=== PATIENT | female | born 1965 | race Caucasian/White ===

== ENCOUNTER 2017-04-06 15:33 | Outpatient (CLI) | payer OTHER ==
--- NOTE | 2017-04-06 15:57 | RAD ---
PA AND LATERAL CHEST: History: Cough. FINDINGS: Heart size is normal. The lungs are well expanded without focal lesions, consolidation, pneumothorace s or pleural effusions. There are mild degenerative changes in the spine. IMPRESSION: No radiographic evidence of acute cardiopulmonary process. POS: OFF
== END 2017-04-06 15:34 | disposition home or self-care (01) ==
LOC: SCSRAD 15:33
PROVIDERS: ATTEND Family Medicine
DX: R05 Cough (principal)
CPT/HCPCS: 71046

== ENCOUNTER 2018-01-29 11:09 | Outpatient (CLI) | payer OTHER ==
--- NOTE | 2018-01-29 12:55 | RAD ---
PA AND LATERAL VIEWS CHEST: HISTORY: Cough. FINDINGS: Comparison is made with the exam of 04/06/2017. The cardiomediastinum is normal. The lungs are expanded without focal areas of consolidation, pneumo thorax, or pleural effusions. There are mild degenerative changes in the spine. IMPRESSION: No radiographic evidence of acute cardiopulmonary process. POS: OFF
== END 2018-01-29 11:10 | disposition home or self-care (01) ==
LOC: SCSRAD 11:09
PROVIDERS: ATTEND Family Medicine
DX: J20.9 Acute bronchitis, unspecified (principal)
CPT/HCPCS: 71046

== ENCOUNTER 2020-01-30 21:11 | Inpatient (IN) | payer OTHER ==
[~2020-01-30 21:11] MED LIST: Iopamidol-370 76% 500 ML 1 ML ONE
[2020-01-30] MEDS ORDERED: Aspirin Chewable 81 MG TAB ONE (22:22)
[2020-01-30] MEDS ORDERED: methylPREDNISolone Sod Succ/PF 125 MG/2 ML VIAL ONE (22:22)
[2020-01-30] MEDS ORDERED: Albuterol 200 PUFF (6.7GM INHALER) ONE (22:45)
[2020-01-30 22:49] LABS: #Lymphocytes 0.9 thou/uL (1.20-3.40); #Monocytes 0.5 thou/uL (0.11-0.59); #Neutrophils 10.8 thou/uL (1.40-6.50); %Basophils 0.1 % (0.0-1.0); %Eosinophils 0.1 % (0.0-10.0); %Lymphocytes 7.2 % (21.0-51.0); %Neutrophils 88.6 % (42.0-75.0); Hemoglobin 13.2 g/dL (12.0-16.0); Mean Corpuscular HGB CONC 33.5 g/dL (32.0-36.0); Mean Corpuscular Hemoglobin 33.1 pg (27.0-31.0); Mean Corpuscular Volume 98.7 fL (78.0-98.0); Mean Platelet Volume 7.4 fL (7.4-10.4); Platelet Count 270 thou/uL (130-400); RBC Distribution Width 11.7 % (11.5-14.5); Red Blood Cell (RBC) Count 3.99 mill/uL (4.20-5.40); White Blood Cell (WBC) Count 12.1 thou/uL (4.8-10.8)
[2020-01-30 23:11] LABS: ALT (SGPT) 49 U/L (8-55); AST (SGOT) 41 U/L (5-34); Albumin 3.8 g/dL (3.5-5.0); Alkaline Phosphatase 64 U/L (40-110); Anion Gap 14 mmol/L (10-20); BUN (Urea Nitrogen) 13 mg/dL (9.8-20.1); Bilirubin, Total 0.5 mg/dL (0.2-1.2); Calc. Creatinine Clearance 0 mL/min (70-130); Calcium 8.5 mg/dL (7.8-10.44); Carbon Dioxide 24 mmol/L (22-29); Chloride 108 mmol/L (98-107); Globulin 3.2 g/dL (2.4-3.5); Glucose 146 mg/dL (70-105); Potassium 4.2 mmol/L (3.5-5.1); Sodium 142 mmol/L (136-145)
--- NOTE | 2020-01-30 23:17 | RAD ---
EXAM: Single view of the chest HISTORY: Covid positive with dyspnea and fever COMPARISON: 01/29/2018 FINDINGS: Single view of the chest shows a normal sized cardiomediastinal silhouette. There is subtle peripheral areas of airspace attenuation in the lungs. These are more discernible in the left lung. No acute osseous abnormality. IMPRESSION: Subtle multifocal infiltrates
[2020-01-30] MEDS ORDERED: Enoxaparin Sodium 100 MG/ML SYRINGE ONE (23:32)
[2020-01-30] MEDS ORDERED: Azithromycin 500 MG VIAL ONE (23:39)
--- NOTE | 2020-01-31 01:27 | PDOC.HHP ---
Hospitalist HPI - History of Present Illness Shortness of breath, Covid positive History of Present Illness: This is a 54-year-old female patient With a history of asthma who tested positive for Covid on 01/22/2020 after having symptoms beginning 3 days prior. She notes that her was positive but was generally asymptomatic. She was in contact with her PCP who ordered for her some steroids and she is also been taking some vitamins. Symptoms have progressively worsened with increasing cough, fever, shortness of breath and generalized malaise prompting her to come to the ED for further evaluation. She denies any dysuria frequency abdominal pain but notes having diarrhea. At presentation vitals shows blood pressure of 114/46, pulse 76, temperature 98.3 and saturation 96 on room air. Subsequently she needed 2 L of oxygen for saturation. Labs showed a leukocytosis of 12.1, hemoglobin 13.2 and platelets 270. CMP was essentially within normal limits. D-dimer was elevated at 0.53. Chest x-ray showed multiple subtle multifocal infiltrates and a CTA all concerning for Covid. She was given a azithromycin Lovenox aspirin Proventil and Solu-Medrol in the ED. Hospitalist ROS - Review of Systems Constitutional: reports: fever, chills, weakness Respiratory: reports: cough, shortness of breath, SOB with excertion. denies: hemoptysis Cardiovascular: denies: chest pain, palpitations, orthopnea, paroxysmal noc. dyspnea Gastrointestinal: reports: diarrhea. denies: nausea, vomiting, abdominal pain, constipation Genitourinary: denies: dysuria, frequency, incontinence, hematuria Musculoskeletal: denies: neck pain, shoulder pain Neurological: denies: weakness, numbness, change in speech All other systems reviewed; all pertinent +/- noted in HPI/Subj - Medication Medications: Can refer to ambulatory Ct. Allergies: No known drug allergies Hospitalist History - Past Medical History Pulmonary: reports: asthma - Past Surgical History Past Surgical History: reports: Hysterectomy - Family History Family History: reports: no pertinent history - Social History Smoking Status: Never smoker Alcohol: reports: None Living Situation: With Family Activity level: independent ambulation - Exam General Appearance: awake alert General - other findings: Mild distress otherwise looks cheerful. Eye: PERRL, anicteric sclera ENT: normocephalic atraumatic Neck: supple, symmetric, no JVD Heart: RRR, no gallops, no rubs, murmur present Respiratory - other findings: Reduced air entry bilaterally. Occasional wheezing Gastrointestinal: soft, non-tender, non-distended, normal bowel sounds Extremities: no cyanosis, no clubbing, no edema Neurological: cranial nerve grossly intact, no weakness Psychiatric: normal affect, normal behavior, A&O x 3 Hospitalist Results - Labs Result Diagrams: 01/31/20 02:18 01/31/20 02:18 Lab results: WBC 12.1 thou/uL (4.8-10.8) H 01/30/20 22:32 Hgb 13.2 g/dL (12.0-16.0) 01/30/20 22:32 Hct 39.4 % (36.0-47.0) 01/30/20 22:32 MCV 98.7 fL (78.0-98.0) H 01/30/20 22:32 Plt Count 270 thou/uL (130-400) 01/30/20 22:32 Neutrophils % 88.6 % (42.0-75.0) H 01/30/20 22:32 Sodium 142 mmol/L (136-145) 01/30/20 22:32 Potassium 4.2 mmol/L (3.5-5.1) 01/30/20 22:32 Chloride 108 mmol/L (98-107) H 01/30/20 22:32 Carbon Dioxide 24 mmol/L (22-29) 01/30/20 22:32 BUN 13 mg/dL (9.8-20.1) 01/30/20 22:32 Creatinine 0.81 mg/dL (0.6-1.1) 01/30/20 22:32 Glucose 146 mg/dL (70-105) H 01/30/20 22:32 Lactic Acid 1.7 mmol/L (0.5-2.2) 01/30/20 22:32 Calcium 8.5 mg/dL (7.8-10.44) 01/30/20 22:32 Total Bilirubin 0.5 mg/dL (0.2-1.2) 01/30/20 22:32 AST 41 U/L (5-34) H 01/30/20 22:32 ALT 49 U/L (8-55) 01/30/20 22:32 Alkaline Phosphatase 64 U/L (40-110) 01/30/20 22:32 Troponin I Less than 0.010 ng/mL (< 0.028) 01/30/20 22:32 Serum Total Protein 7.0 g/dL (6.0-8.3) 01/30/20 22:32 Albumin 3.8 g/dL (3.5-5.0) 01/30/20 22:32 Hospitalist H&P A/P - Plan Plan: Is a 54-year-old female patient history of asthma diagnosed with Covid pneumonia 9 days ago here today for worsening cough shortness of breath. Pneumonia due to Covid We will continue on zinc vitamin C Decadron Convalescent plasma She is out of remdesivir window As needed oxygen Twice daily anticoagulant Monitor. History of asthma Plan is scheduled DuoNeb's. Steroids as above DVT prophylaxisLovenox CODE STATUSfull code
[2020-01-31 01:56] VITALS: BMI 32.8
[2020-01-31 02:40] LABS: #Lymphocytes 0.9 thou/uL (1.20-3.40); #Monocytes 0.3 thou/uL (0.11-0.59); %Basophils 0.1 % (0.0-1.0); %Eosinophils 0.2 % (0.0-10.0); %Lymphocytes 7.4 % (21.0-51.0); %Monocytes 2.1 % (0.0-10.0); %Neutrophils 90.2 % (42.0-75.0); Hemoglobin 13.3 g/dL (12.0-16.0); Mean Corpuscular HGB CONC 34.1 g/dL (32.0-36.0); Mean Corpuscular Hemoglobin 34.6 pg (27.0-31.0); Mean Platelet Volume 7.5 fL (7.4-10.4); Platelet Count 248 thou/uL (130-400); RBC Distribution Width 11.8 % (11.5-14.5); Red Blood Cell (RBC) Count 3.85 mill/uL (4.20-5.40); White Blood Cell (WBC) Count 12.2 thou/uL (4.8-10.8)
[2020-01-31 03:12] LABS: Anion Gap 18 mmol/L (10-20); BUN (Urea Nitrogen) 13 mg/dL (9.8-20.1); Calc. Creatinine Clearance 116 mL/min (70-130); Calcium 8.2 mg/dL (7.8-10.44); Carbon Dioxide 19 mmol/L (22-29); Chloride 109 mmol/L (98-107); Glucose 156 mg/dL (70-105); Potassium 4.2 mmol/L (3.5-5.1); Sodium 142 mmol/L (136-145)
[2020-01-31] MEDS ORDERED: Albuterol 200 PUFF (6.7GM INHALER) INH PRN (06:00)
[2020-01-31] MEDS ORDERED: Benzonatate 100 MG CAP PO PRN (06:02)
[2020-01-31] MEDS: Albuterol 200 PUFF (6.7GM INHALER) INH SCH ×5 (06:13→22:03)
--- NOTE | 2020-01-31 08:02 | CT ---
CT OF THE CHEST: COMPARISON: None. HISTORY: COVID positive with fever and decreased oxygen saturation. TECHNIQUE: Multiple contiguous axial images were obtained in a CTA of the chest with contrast per pulmonary embo lism protocol. Three-D oblique MIP reformats and direct coronal reformats were performed. FINDINGS: The pulmonary arteries are well opacified without filling defects to suggest pulmonary emboli. The h eart is normal in size without focal cardiac abnormality. No hilar or mediastinal lymphadenopathy ar e seen. There are multifocal peripheral opacities in the lungs consistent with COVID pneumonia. No pneumotho rax or pleural effusion are seen. No suspicious pulmonary masses are seen. Mild degenerative changes are seen in the spine. The chest wall soft tissues were unremarkable. The visualized subdiaphragmatic structures are unremarkable. IMPRESSION: 1. No evidence of pulmonary thromboembolism. 2. COVID pneumonia. POS: EAA
[2020-01-31] MEDS ORDERED: Non-Formulary Item 1 EACH (Fluticasone/Vilanterol [Breo Ellipta] 100 MCG/25 MCG Blst.W.De IH SCH (09:00)
[2020-01-31] MEDS ORDERED: Fluticasone Propionate Nasal Spray 16 gm Bottle NASAL SCH (09:00)
[2020-01-31] MEDS ORDERED: Dexamethasone 20 MG/5 ML VIAL SLOW IVP SCH (09:00)
[2020-01-31] MEDS ORDERED: Non-Formulary Item 1 EACH (Benzonatate [Benzonatate] 200 MG Capsule) PO SCH (09:00)
[2020-01-31] MEDS ORDERED: Non-Formulary Item 1 EACH (Levothyroxine Sodium [Levothyroxine] 112 MCG Capsule) PO SCH (09:00)
[2020-01-31] MEDS ORDERED: ESTRADIOL 10 MCG VG SCH (09:00)
[2020-01-31] MEDS: Cholecalciferol (Vitamin D3) 400 UNITS TAB PO SCH (10:25)
[2020-01-31] MEDS: Dexamethasone 4 mg/ml Vial SLOW IVP SCH (10:25)
[2020-01-31] MEDS: Enoxaparin Sodium 40 MG/0.4 ML SYRINGE SC SCH ×2 (10:25→20:32)
[2020-01-31] MEDS: Benzonatate 100 MG CAP PO SCH ×2 (10:25→20:29)
[2020-01-31] MEDS: Fluticasone Propionate Nasal Spray 16 gm Bottle NASAL SCH ×2 (10:26→20:30)
[2020-01-31] MEDS: Ascorbic Acid 500 mg Chewable Tablet PO SCH (12:11)
[2020-01-31] MEDS ORDERED: Mometasone 100 MCG/Formoterol 5 MCG 120 PUFF INHALER INH SCH (18:30)
--- NOTE | 2020-01-31 18:38 | PDOC.HOSPP ---
- Subjective Encounter Date: 01/31/20 Encounter Time: 10:30 Subjective: Patient seen for follow-up regarding COVID-19 pneumonia. She reports feeling better today. - Objective Vital Signs & Weight: Vital Signs (12 hours) Temp Pulse Pulse Resp BP BP Pulse Ox 01/31/20 15:40 98.5 F 80 17 101/56 L 94 L 01/31/20 13:00 98.0 F 70 20 103/64 95 01/31/20 07:40 98.4 F 65 22 H 110/64 96 Weight Admit Weight 197 lb 9.6 oz Weight 197 lb 9.6 oz I&O: 01/30/20 01/31/20 02/01/20 06:59 06:59 06:59 Intake Total 750 240 Balance 750 240 Result Diagrams: 01/31/20 02:18 01/31/20 02:18 Additional Labs: I reviewed patient's labs and MAR Hospitalist ROS - Review of Systems Respiratory: reports: cough, SOB with excertion, sputum. denies: dry, shortness of breath, hemoptysis, pleuritic pain, wheezing Cardiovascular: denies: chest pain, palpitations, orthopnea, paroxysmal noc. dyspnea, edema, light headedness - Medication Medications: Active Medications Generic Name Dose Route Start Last Admin Trade Name Freq PRN Reason Stop Dose Admin Albuterol Sulfate 2 puff 01/31/20 06:30 01/31/20 18:24 Albuterol 200 Puff (6.7gm Inhaler) INH 2 puff [id number] AWA Administration Ascorbic Acid 1,000 mg 01/31/20 09:00 01/31/20 12:11 Ascorbic Acid 500 Mg Chewable Tablet PO 1,000 mg DAILY AWA Administration Benzonatate 100 mg 01/31/20 06:02 01/31/20 06:27 Benzonatate 100 Mg Cap PO 100 mg Q6H PRN Administration Cough Benzonatate 200 mg 01/31/20 09:00 01/31/20 10:25 Benzonatate 100 Mg Cap PO 200 mg BID AWA Administration Cholecalciferol 400 units 01/31/20 09:00 01/31/20 10:25 Cholecalciferol (Vitamin D3) 400 Units Tab PO 400 units DAILY AWA Administration Dexamethasone 8 mg 01/31/20 09:00 01/31/20 10:25 Dexamethasone 4 Mg/Ml Vial SLOW IVP 8 mg DAILY AWA Administration Enoxaparin Sodium 40 mg 01/31/20 09:00 01/31/20 10:25 Enoxaparin Sodium 40 Mg/0.4 Ml Syringe SC 40 mg Q12HR AWA Administration Fluticasone Propionate 0 gm 01/31/20 09:00 01/31/20 10:26 Fluticasone Propionate Nasal [place] 16 Gm Bottle NASAL 2 spr BID AWA Administration Sodium Chloride 10 ml 01/31/20 09:00 01/31/20 12:12 Flush - Normal Saline 10 Ml Syringe IVF 10 ml Q12HR AWA Administration - Exam General Appearance: awake alert Eye: anicteric sclera ENT: normocephalic atraumatic Neck: supple Heart: RRR Respiratory: CTAB Gastrointestinal: soft, non-tender Extremities: no edema Skin: no rashes Musculoskeletal: no muscle wasting Psychiatric: normal affect, normal behavior Hosp A/P - Plan Assessment/plan: Pneumonia due to Covid Continue dexamethasone, zinc and vitamin C. Patient received convalescent plasma. She is out of remdesivir window Lovenox 40 mg subcutaneously 2 times a day for DVT prophylaxis. Oxygen as needed. asthma Appears to be stable.
[2020-01-31] MEDS: Acetaminophen 325 MG TAB PO PRN (20:29)
[2020-01-31] MEDS: Mometasone 100 MCG/Formoterol 5 MCG 120 PUFF INHALER INH SCH (20:30)
[2020-02-01] MEDS: Albuterol 200 PUFF (6.7GM INHALER) INH SCH ×6 (02:17→22:55)
[2020-02-01] MEDS: Mometasone 100 MCG/Formoterol 5 MCG 120 PUFF INHALER INH SCH ×2 (05:27→17:53)
[2020-02-01] MEDS: Levothyroxine Sodium 112 MCG TAB PO SCH (05:27)
[2020-02-01] MEDS: Acetaminophen 325 MG TAB PO PRN (05:36)
[2020-02-01] MEDS: Ascorbic Acid 500 mg Chewable Tablet PO SCH (08:37)
[2020-02-01] MEDS: Dexamethasone 4 mg/ml Vial SLOW IVP SCH (08:37)
[2020-02-01] MEDS: Enoxaparin Sodium 40 MG/0.4 ML SYRINGE SC SCH ×3 (08:38→20:41)
[2020-02-01] MEDS: Benzonatate 100 MG CAP PO SCH ×2 (08:38→20:23)
[2020-02-01] MEDS: Fluticasone Propionate Nasal Spray 16 gm Bottle NASAL SCH ×2 (08:38→20:23)
[2020-02-01] MEDS: Cholecalciferol (Vitamin D3) 400 UNITS TAB PO SCH (09:00)
--- NOTE | 2020-02-01 16:33 | PQF ---
CLINICAL DOCUMENTATION CLARIFICATION FORM: Dear Dr. Rachell Quezada Date / Time: 02/01/20 [id number] Please exercise your independent, professional judgment in responding to the clarification form. Clinical indicators are provided on the bottom of this form for your review. Please check appropriate box(es): [ ] Sepsis due to: [ ] Septic Shock [ ] Localized infection without sepsis [ ] SIRS due to non-infectious process (please specify etiology) [ ] with organ dysfunction [ ] without organ dysfunction [ ] Other diagnosis [ ] Unable to determine In addition, please specify: Present on Admission (POA): [ ] Yes [ ] No [ ] Unable to determine For continuity of documentation, please document condition throughout progress notes and discharge summary. Thank You. To be completed by CDI/Coding staff for physician review: CLINICAL INDICATORS - SIGNS / SYMPTOMS / LABS / RESULTS AND LOCATION IN MR 01/29 WBC 12.1 01/30 WBC 12.2 Presents for SOB, associated with cough, dry,fever// 102.0 oral, Resp rate 22, ( ED report) 01/29 RISK FACTORS / RESULTS AND LOCATION IN MR Covid Pneumonia ( H&P/ [facility]) 01/29 TREATMENTS / RESULTS AND LOCATION IN MR NS [place] ( ED 01/29) Azithromycin IVPB ( ED 01/29) Supplemental oxygen ( 01/30 present) CDS Signature: Amanda Prado RN Phone #: [phone] Date: 02/01/2020 This is a permanent part of the Medical Record [facility]
--- NOTE | 2020-02-01 16:34 | PDOC.HOSPP ---
- Subjective Encounter Date: 02/01/20 Encounter Time: 10:30 Subjective: Patient seen for follow-up regarding COVID-19 pneumonia. Reports cough and sputum. - Objective Vital Signs & Weight: Vital Signs (12 hours) Temp Pulse Resp BP Pulse Ox 02/01/20 16:32 98.6 F 02/01/20 13:59 98.7 F 80 20 110/64 96 02/01/20 09:00 95 02/01/20 08:57 98.1 F 71 20 106/71 95 02/01/20 05:40 100.6 F H Weight Admit Weight 197 lb 9.6 oz Weight 197 lb 9.6 oz I&O: 01/31/20 02/01/20 02/02/20 06:59 06:59 06:59 Intake Total 750 740 Balance 750 740 Result Diagrams: 01/31/20 02:18 01/31/20 02:18 Additional Labs: Labs and MAR reviewed by wy Hospitalist ROS - Review of Systems Respiratory: reports: cough, sputum. denies: dry, shortness of breath, hem optysis, SOB with excertion, pleuritic pain, wheezing Cardiovascular: denies: chest pain, palpitations, orthopnea, paroxysmal noc. dyspnea, edema, light headedness - Medication Medications: Active Medications Generic Name Dose Route Start Last Admin Trade Name Freq PRN Reason Stop Dose Admin Acetaminophen 650 mg 01/31/20 01:14 02/01/20 05:36 Acetaminophen 325 Mg Tab PO 650 mg Q4H PRN Administration Headache/Fever/Mild Pain (1-3) Albuterol Sulfate 2 puff 01/31/20 06:30 02/01/20 14:42 Albuterol 200 Puff (6.7gm Inhaler) INH 2 puff [id number] AWA Administration Ascorbic Acid 1,000 mg 01/31/20 09:00 02/01/20 08:37 Ascorbic Acid 500 Mg Chewable Tablet PO 1,000 mg DAILY AWA Administration Benzonatate 100 mg 01/31/20 06:02 01/31/20 06:27 Benzonatate 100 Mg Cap PO 100 mg Q6H PRN Administration Cough Benzonatate 200 mg 01/31/20 09:00 02/01/20 08:38 Benzonatate 100 Mg Cap PO 200 mg BID AWA Administration Cholecalciferol 400 units 01/31/20 09:00 02/01/20 09:00 Cholecalciferol (Vitamin D3) 400 Units Tab PO 400 units DAILY AWA Administration Dexamethasone 8 mg 01/31/20 09:00 02/01/20 08:37 Dexamethasone 4 Mg/Ml Vial SLOW IVP 8 mg DAILY AWA Administration Enoxaparin Sodium 40 mg 01/31/20 09:00 02/01/20 08:38 Enoxaparin Sodium 40 Mg/0.4 Ml Syringe SC 40 mg Q12HR AWA Administration Fluticasone Propionate 0 gm 01/31/20 09:00 02/01/20 08:38 Fluticasone Propionate Nasal [place] 16 Gm Bottle NASAL 2 spr BID AWA Administration Levothyroxine Sodium 112 mcg 02/01/20 06:00 02/01/20 05:27 Levothyroxine Sodium 112 Mcg Tab PO 112 mcg 0600 AWA Administration Mometasone Furoate/Formoterol Fumar 0 puff 01/31/20 18:30 02/01/20 05:27 Mometasone 100 Mcg/Formoterol 5 Mcg 120 Puff Inhaler INH 2 puff BID-RT AWA Administration Sodium Chloride 10 ml 01/31/20 09:00 02/01/20 08:39 Flush - Normal Saline 10 Ml Syringe IVF 10 ml Q12HR AWA Administration - Exam General Appearance: awake alert Eye: anicteric sclera ENT: moist mucosa Neck: supple Heart: RRR Respiratory: rhonchi Gastrointestinal: soft, non-tender Skin: no rashes Psychiatric: normal affect, normal behavior Hosp A/P - Plan Assessment/plan: Pneumonia due to Covid Patient is on dexamethasone, zinc and vitamin C. Patient received convalescent plasma. She is out of remdesivir window Lovenox for DVT prophylaxis. Oxygen as needed. asthma Astable.
--- NOTE | 2020-02-01 16:48 | PQF ---
CLINICAL DOCUMENTATION CLARIFICATION FORM: Dear Dr. Rachell IQBAL Date: 02/01/20 4759 Please exercise your independent, professional judgment in responding to the clarification form. Clinical indicators are provided on the bottom of this form for your review. Please check appropriate box(es): [ ] Acute Respiratory Failure: [ ] with Hypoxia [ ] with Hypercapnia [ ] Acute On Chronic Respiratory Failure: [ ] with Hypoxia [ ] with Hypercapnia [ ] Acute Respiratory Failure due to: (etiology) [ ] Chronic Respiratory Failure only [ ] with Hypoxia [ ] with Hypercapnia [ ] Hypoxia [ ] Other diagnosis [ ] Unable to determine In addition, please specify: Present on Admission (POA): [ ] Yes [ ] No [ ] Unable to determine For continuity of documentation, please document condition throughout progress notes and discharge summary. Thank You. To be completed by CDI/Coding staff for physician review: CLINICAL INDICATORS - SIGNS / SYMPTOMS / LABS / RESULTS AND LOCATION IN MR Covid + on Jan 21. Fever, low O2 sats. Pt states O2 90% at home. Pt speaks in short phrases in triage// respirations , Final ED DX: Covid Pneumonia, Hypoxia ( ED report) 01/29 Sob, tested positive for Covid on 01/21, 96% on RA, Subsequently she need 2L of oxygen for saturation. ( H&P/ [facility]) 01/29 Pneumonia due to Covid, oxygen as needed ( ALEX/[facility]) 01/30-01/31 RISK FACTORS / RESULTS AND LOCATION IN MR Covid pneumonia , hx of asthma, ( H&P/[facility]) 01/29 TREATMENTS / RESULTS AND LOCATION IN MR Supplemental oxygen (01/30 present) Acute Respiratory Failure: ABG pH < 7.35 or > 7.45; Decreased oxygen saturation (<90% room air or < 95% on oxygen); PCO2 > 50 mm Hg; PO2 < 60 mm Hg; Labored or rapid respirations ARDS: Dx Criteria [[place] ARDS]: Respiratory symptoms within one week of a known clinical insult (e.g. shock, infection, surgery, trauma) Bilateral opacities in CXR/Chest CT not due to CHF or fluid THANK YOU! CDS Signature: Amanda Prado RN Phone #: [phone] Date:01/31 This is a permanent part of the Medical Record [facility]
[2020-02-02] MEDS: Albuterol 200 PUFF (6.7GM INHALER) INH SCH ×6 (01:54→23:00)
[2020-02-02] MEDS: Levothyroxine Sodium 112 MCG TAB PO SCH (05:03)
[2020-02-02] MEDS: Mometasone 100 MCG/Formoterol 5 MCG 120 PUFF INHALER INH SCH ×2 (05:38→17:33)
[2020-02-02] MEDS: Dexamethasone 4 mg/ml Vial SLOW IVP SCH (08:16)
[2020-02-02] MEDS: Cholecalciferol (Vitamin D3) 400 UNITS TAB PO SCH (08:16)
[2020-02-02] MEDS: Enoxaparin Sodium 40 MG/0.4 ML SYRINGE SC SCH ×2 (08:17→23:22)
[2020-02-02] MEDS: Fluticasone Propionate Nasal Spray 16 gm Bottle NASAL SCH ×2 (08:17→23:23)
[2020-02-02] MEDS: Benzonatate 100 MG CAP PO SCH ×2 (08:17→23:22)
[2020-02-02] MEDS: Ascorbic Acid 500 mg Chewable Tablet PO SCH (08:17)
[2020-02-02] MEDS: Acetaminophen 325 MG TAB PO PRN (08:28)
[2020-02-02 09:52] LABS: White Blood Cell (WBC) Count 14.1 thou/uL (4.8-10.8)
[2020-02-02 10:10] LABS: Anion Gap 15 mmol/L (10-20); BUN (Urea Nitrogen) 14 mg/dL (9.8-20.1); Calc. Creatinine Clearance 115 mL/min (70-130); Carbon Dioxide 23 mmol/L (22-29); Chloride 105 mmol/L (98-107); Glucose 161 mg/dL (70-105); Potassium 3.7 mmol/L (3.5-5.1); Sodium 139 mmol/L (136-145)
[2020-02-02 10:23] LABS: Hemoglobin 12.6 g/dL (12.0-16.0); Mean Corpuscular HGB CONC 33.9 g/dL (32.0-36.0); Mean Corpuscular Hemoglobin 34.1 pg (27.0-31.0); Platelet Count 318 thou/uL (130-400); RBC Distribution Width 11.6 % (11.5-14.5); Red Blood Cell (RBC) Count 3.69 mill/uL (4.20-5.40)
[2020-02-02 10:24] LABS: Band 2 % (5-11); Lymphocytes 6 % (21-51); MDiff Complete? YES; Monocytes 4 % (0-10); Neutrophil 83 % (42-75); Platelet Morphology Comment Appears Adequate; Reactive Lymphocytes 5 % (0-10)
[2020-02-02] MEDS: Estradiol [Vagifem] 10 MCG Tablet VAG SCH ×2 (13:22→13:23)
--- NOTE | 2020-02-02 19:37 | PDOC.HOSPP ---
- Subjective Encounter Date: 02/02/20 Encounter Time: 11:30 Subjective: Patient seen for follow-up COVID-19 pneumonia. She reports fever. She reports generalized weakness. - Objective Vital Signs & Weight: Vital Signs (12 hours) Temp Pulse Resp BP Pulse Ox 02/02/20 16:06 98.1 F 72 18 105/66 96 02/02/20 12:02 97.7 F 62 20 106/63 96 02/02/20 08:57 96 02/02/20 08:55 101 F H 72 16 103/65 96 Weight Admit Weight 197 lb 9.6 oz Weight 197 lb 9.6 oz I&O: 02/01/20 02/02/20 02/03/20 06:59 06:59 06:59 Intake Total 740 1000 1000 Balance 740 1000 1000 Result Diagrams: 02/03/20 05:40 02/03/20 05:40 Additional Labs: I reviewed patient's labs and MAR Hospitalist ROS - Review of Systems Constitutional: reports: weakness Respiratory: reports: cough, SOB with excertion, sputum Cardiovascular: denies: chest pain, palpitations, orthopnea, paroxysmal noc. dyspnea, edema, light headedness Gastrointestinal: denies: nausea, vomiting, abdominal pain, diarrhea, constipation, melena, hematochezia - Medication Medications: Active Medications Generic Name Dose Route Start Last Admin Trade Name Freq PRN Reason Stop Dose Admin Acetaminophen 650 mg 01/31/20 01:14 02/02/20 08:28 Acetaminophen 325 Mg Tab PO 650 mg Q4H PRN Administration Headache/Fever/Mild Pain (1-3) Albuterol Sulfate 2 puff 01/31/20 06:30 02/02/20 17:32 Albuterol 200 Puff (6.7gm Inhaler) INH 2 puff [id number] AWA Administration Ascorbic Acid 1,000 mg 01/31/20 09:00 02/02/20 08:17 Ascorbic Acid 500 Mg Chewable Tablet PO 1,000 mg DAILY AWA Administration Benzonatate 100 mg 01/31/20 06:02 01/31/20 06:27 Benzonatate 100 Mg Cap PO 100 mg Q6H PRN Administration Cough Benzonatate 200 mg 01/31/20 09:00 02/02/20 08:17 Benzonatate 100 Mg Cap PO 200 mg BID AWA Administration Cholecalciferol 400 units 01/31/20 09:00 02/02/20 08:16 Cholecalciferol (Vitamin D3) 400 Units Tab PO 400 units DAILY AWA Administration Dexamethasone 8 mg 01/31/20 09:00 02/02/20 08:16 Dexamethasone 4 Mg/Ml Vial SLOW IVP 8 mg DAILY AWA Administration Enoxaparin Sodium 40 mg 01/31/20 09:00 02/02/20 08:17 Enoxaparin Sodium 40 Mg/0.4 Ml Syringe SC 40 mg Q12HR AWA Administration Fluticasone Propionate 0 gm 01/31/20 09:00 02/02/20 08:17 Fluticasone Propionate Nasal [place] 16 Gm Bottle NASAL 1 spr BID AWA Administration Levothyroxine Sodium 112 mcg 02/01/20 06:00 02/02/20 05:03 Levothyroxine Sodium 112 Mcg Tab PO 112 mcg 0600 AWA Administration Mometasone Furoate/Formoterol Fumar 0 puff 01/31/20 18:30 02/02/20 17:33 Mometasone 100 Mcg/Formoterol 5 Mcg 120 Puff Inhaler INH 2 puff BID-RT AWA Administration Sodium Chloride 10 ml 01/31/20 09:00 02/02/20 08:17 Flush - Normal Saline 10 Ml Syringe IVF 10 ml Q12HR AWA Administration - Exam General Appearance: awake alert General - other findings: Obese Eye: anicteric sclera ENT: moist mucosa Neck: supple Heart: RRR Respiratory: rhonchi Gastrointestinal: soft, non-tender Skin: no rashes Psychiatric: normal affect, normal behavior Hosp A/P - Plan Assessment/plan: Pneumonia due to Covid Continue dexamethasone, zinc and vitamin C. Status post convalescent plasma. She is out of remdesivir window Lovenox for DVT prophylaxis. Oxygen as needed. asthma Stable and controlled. -sepsis due to COVID-19 pneumonia, present on admission -acute hypoxic respiratory failure, present on admission
[2020-02-03] MEDS: Albuterol 200 PUFF (6.7GM INHALER) INH SCH ×6 (03:00→22:55)
[2020-02-03 06:14] LABS: Anion Gap 14 mmol/L (10-20); BUN (Urea Nitrogen) 13 mg/dL (9.8-20.1); Calc. Creatinine Clearance 123 mL/min (70-130); Calcium 8.5 mg/dL (7.8-10.44); Carbon Dioxide 24 mmol/L (22-29); Chloride 105 mmol/L (98-107); Glucose 106 mg/dL (70-105); Potassium 4.3 mmol/L (3.5-5.1); Sodium 139 mmol/L (136-145)
[2020-02-03 06:21] LABS: Band 10 % (5-11); Hemoglobin 13.3 g/dL (12.0-16.0); Lymphocytes 15 % (21-51); MDiff Complete? YES; Mean Corpuscular HGB CONC 32.7 g/dL (32.0-36.0); Mean Corpuscular Hemoglobin 32.8 pg (27.0-31.0); Mean Platelet Volume 6.9 fL (7.4-10.4); Monocytes 10 % (0-10); Neutrophil 61 % (42-75); Platelet Count 400 thou/uL (130-400); Platelet Morphology Comment Appears Adequate; RBC Distribution Width 11.8 % (11.5-14.5); RBC Morphology Normal; Reactive Lymphocytes 4 % (0-10); Red Blood Cell (RBC) Count 4.07 mill/uL (4.20-5.40)
[2020-02-03] MEDS: Mometasone 100 MCG/Formoterol 5 MCG 120 PUFF INHALER INH SCH ×2 (06:29→19:08)
[2020-02-03] MEDS: Levothyroxine Sodium 112 MCG TAB PO SCH (06:29)
[2020-02-03] MEDS: Enoxaparin Sodium 40 MG/0.4 ML SYRINGE SC SCH ×2 (08:24→20:39)
[2020-02-03] MEDS: Fluticasone Propionate Nasal Spray 16 gm Bottle NASAL SCH ×2 (08:24→20:39)
[2020-02-03] MEDS: Ascorbic Acid 500 mg Chewable Tablet PO SCH (08:24)
[2020-02-03] MEDS: Dexamethasone 4 mg/ml Vial SLOW IVP SCH (08:24)
[2020-02-03] MEDS: Benzonatate 100 MG CAP PO SCH ×2 (08:24→20:39)
[2020-02-03] MEDS: Cholecalciferol (Vitamin D3) 400 UNITS TAB PO SCH (08:28)
--- NOTE | 2020-02-03 13:36 | PDOC.HOSPP ---
- Subjective Encounter Date: 02/03/20 Encounter Time: 13:35 Subjective: patient seen on f/u for covid 19 pneumonia, denies any fever does report a fever of 101 the previous night. patient complains of generalize weakness and HUMPHRIES. she states gets winded walking to the bathroom is currently on 3L unable to wean [place], no hx of home 02 - Objective Vital Signs & Weight: Vital Signs (12 hours) Temp Pulse Resp BP BP Pulse Ox 02/03/20 08:58 94 L 02/03/20 08:30 97.8 F 68 20 95/61 94 L 02/03/20 04:00 98.2 F 62 18 115/73 96 Weight Admit Weight 197 lb 9.6 oz Weight 197 lb 9.6 oz I&O: 02/02/20 02/03/20 02/04/20 06:59 06:59 06:59 Intake Total 1000 1000 Balance 1000 1000 Result Diagrams: 02/03/20 05:40 02/03/20 05:40 Hospitalist ROS - Review of Systems All other systems reviewed; all pertinent +/- noted in HPI/Subj - Medication Medications: Active Medications Generic Name Dose Route Start Last Admin Trade Name Freq PRN Reason Stop Dose Admin Acetaminophen 650 mg 01/31/20 01:14 02/02/20 08:28 Acetaminophen 325 Mg Tab PO 650 mg Q4H PRN Administration Headache/Fever/Mild Pain (1-3) Albuterol Sulfate 2 puff 01/31/20 06:30 02/03/20 10:30 Albuterol 200 Puff (6.7gm Inhaler) INH 2 puff [id number] AWA Administration Ascorbic Acid 1,000 mg 01/31/20 09:00 02/03/20 08:24 Ascorbic Acid 500 Mg Chewable Tablet PO 1,000 mg DAILY AWA Administration Benzonatate 100 mg 01/31/20 06:02 01/31/20 06:27 Benzonatate 100 Mg Cap PO 100 mg Q6H PRN Administration Cough Benzonatate 200 mg 01/31/20 09:00 02/03/20 08:24 Benzonatate 100 Mg Cap PO 200 mg BID AWA Administration Cholecalciferol 400 units 01/31/20 09:00 02/03/20 08:28 Cholecalciferol (Vitamin D3) 400 Units Tab PO 400 units DAILY AWA Administration Dexamethasone 8 mg 01/31/20 09:00 02/03/20 08:24 Dexamethasone 4 Mg/Ml Vial SLOW IVP 8 mg DAILY AWA Administration Enoxaparin Sodium 40 mg 01/31/20 09:00 02/03/20 08:24 Enoxaparin Sodium 40 Mg/0.4 Ml Syringe SC 40 mg Q12HR AWA Administration Fluticasone Propionate 0 gm 01/31/20 09:00 02/03/20 08:24 Fluticasone Propionate Nasal [place] 16 Gm Bottle NASAL 1 spr BID AWA Administration Levothyroxine Sodium 112 mcg 02/01/20 06:00 02/03/20 06:29 Levothyroxine Sodium 112 Mcg Tab PO 112 mcg 0600 AWA Administration Mometasone Furoate/Formoterol Fumar 0 puff 01/31/20 18:30 02/03/20 06:29 Mometasone 100 Mcg/Formoterol 5 Mcg 120 Puff Inhaler INH 1 puff BID-RT AWA Administration Sodium Chloride 10 ml 01/31/20 09:00 02/03/20 08:25 Flush - Normal Saline 10 Ml Syringe IVF 10 ml Q12HR AWA Administration - Exam General Appearance: NAD, awake alert Eye: PERRL, anicteric sclera ENT: normocephalic atraumatic, no oropharyngeal lesions Neck: supple, symmetric, no JVD, no thyromegaly Heart: RRR, no murmur, no gallops, no rubs Respiratory: CTAB, no wheezes, no rales, no ronchi Gastrointestinal: soft, non-tender, non-distended, normal bowel sounds Extremities: no cyanosis, no clubbing, no edema Skin: normal turgor, no lesions, no rashes Neurological: cranial nerve grossly intact, normal sensation to touch, no weakness Musculoskeletal: normal tone, normal strength, no muscle wasting Psychiatric: normal affect, normal behavior, A&O x 3 Hosp A/P (1) Pneumonia due to COVID-19 virus Code(s): U07.1 - COVID-19; J12.89 - OTHER VIRAL PNEUMONIA Status: Acute (2) Respiratory failure with hypoxia Code(s): J96.91 - RESPIRATORY FAILURE, UNSPECIFIED WITH HYPOXIA Status: Acute (3) Bronchial asthma Code(s): J45.909 - UNSPECIFIED ASTHMA, UNCOMPLICATED Status: Acute - Plan Pneumonia due to Covid / resp failure - continue on zinc vitamin C - Decadron - s/p Convalescent plasma - out of remdesivir window - 02 supplementation, wean as tolerated, History of asthma continue home meds DVT prophylaxisLovenox
[2020-02-04] MEDS: Albuterol 200 PUFF (6.7GM INHALER) INH SCH ×6 (03:15→22:18)
[2020-02-04] MEDS: Mometasone 100 MCG/Formoterol 5 MCG 120 PUFF INHALER INH SCH ×2 (05:54→17:14)
[2020-02-04] MEDS: Levothyroxine Sodium 112 MCG TAB PO SCH (05:54)
[2020-02-04] MEDS: Ascorbic Acid 500 mg Chewable Tablet PO SCH (08:56)
[2020-02-04] MEDS: Benzonatate 100 MG CAP PO SCH ×2 (08:56→20:38)
[2020-02-04] MEDS: Dexamethasone 4 mg/ml Vial SLOW IVP SCH (08:56)
[2020-02-04] MEDS: Cholecalciferol (Vitamin D3) 400 UNITS TAB PO SCH (08:56)
[2020-02-04] MEDS: Fluticasone Propionate Nasal Spray 16 gm Bottle NASAL SCH ×2 (08:57→20:38)
[2020-02-04] MEDS: Enoxaparin Sodium 40 MG/0.4 ML SYRINGE SC SCH ×2 (08:57→20:38)
--- NOTE | 2020-02-04 12:48 | PDOC.HOSPP ---
- Subjective Encounter Date: 02/04/20 Encounter Time: 10:00 Subjective: patient seen on f/u for covid 19 pnuemonia, patient states she feels better since first arriving. patient states is now able to walk to and back from the door of the room before getting winded. patient also reports nigh sweats denies fever chills does refers some cough - Objective Vital Signs & Weight: Vital Signs (12 hours) Temp Pulse Resp BP Pulse Ox 02/04/20 08:00 94 L 02/04/20 07:45 98.3 F 59 L 18 93/54 L 94 L 02/04/20 06:01 98.1 F 66 20 105/65 93 L Weight Admit Weight 197 lb 9.6 oz Weight 197 lb 9.6 oz I&O: 02/03/20 02/04/20 02/05/20 06:59 06:59 06:59 Intake Total 1000 650 Balance 1000 650 Result Diagrams: 02/03/20 05:40 02/03/20 05:40 Hospitalist ROS - Review of Systems All other systems reviewed; all pertinent +/- noted in HPI/Subj - Medication Medications: Active Medications Generic Name Dose Route Start Last Admin Trade Name Freq PRN Reason Stop Dose Admin Acetaminophen 650 mg 01/31/20 01:14 02/02/20 08:28 Acetaminophen 325 Mg Tab PO 650 mg Q4H PRN Administration Headache/Fever/Mild Pain (1-3) Albuterol Sulfate 2 puff 01/31/20 06:30 02/04/20 08:58 Albuterol 200 Puff (6.7gm Inhaler) INH 2 puff [id number] AWA Administration Ascorbic Acid 1,000 mg 01/31/20 09:00 02/04/20 08:56 Ascorbic Acid 500 Mg Chewable Tablet PO 1,000 mg DAILY AWA Administration Benzonatate 100 mg 01/31/20 06:02 01/31/20 06:27 Benzonatate 100 Mg Cap PO 100 mg Q6H PRN Administration Cough Benzonatate 200 mg 01/31/20 09:00 02/04/20 08:56 Benzonatate 100 Mg Cap PO 200 mg BID AWA Administration Cholecalciferol 400 units 01/31/20 09:00 02/04/20 08:56 Cholecalciferol (Vitamin D3) 400 Units Tab PO 400 units DAILY AWA Administration Dexamethasone 8 mg 01/31/20 09:00 02/04/20 08:56 Dexamethasone 4 Mg/Ml Vial SLOW IVP 8 mg DAILY AWA Administration Enoxaparin Sodium 40 mg 01/31/20 09:00 02/04/20 08:57 Enoxaparin Sodium 40 Mg/0.4 Ml Syringe SC 40 mg Q12HR AWA Administration Fluticasone Propionate 0 gm 01/31/20 09:00 02/04/20 08:57 Fluticasone Propionate Nasal [place] 16 Gm Bottle NASAL 1 spr BID AWA Administration Levothyroxine Sodium 112 mcg 02/01/20 06:00 02/04/20 05:54 Levothyroxine Sodium 112 Mcg Tab PO 112 mcg 0600 AWA Administration Mometasone Furoate/Formoterol Fumar 0 puff 01/31/20 18:30 02/04/20 05:54 Mometasone 100 Mcg/Formoterol 5 Mcg 120 Puff Inhaler INH 1 puff BID-RT AWA Administration Sodium Chloride 10 ml 01/31/20 09:00 02/04/20 08:58 Flush - Normal Saline 10 Ml Syringe IVF 10 ml Q12HR AWA Administration - Exam General Appearance: NAD, awake alert Eye: PERRL, anicteric sclera ENT: normocephalic atraumatic, no oropharyngeal lesions Neck: supple, symmetric, no JVD Heart: RRR, no murmur, no gallops Respiratory: CTAB, no wheezes, no rales Gastrointestinal: soft, non-tender, non-distended Extremities: no cyanosis, no clubbing, no edema Skin: normal turgor, no lesions, no rashes Neurological: cranial nerve grossly intact, normal sensation to touch Musculoskeletal: normal tone, normal strength, no muscle wasting Psychiatric: normal affect, normal behavior, A&O x 3 Hosp A/P (1) Pneumonia due to COVID-19 virus Code(s): U07.1 - COVID-19; J12.89 - OTHER VIRAL PNEUMONIA Status: Acute (2) Respiratory failure with hypoxia Code(s): J96.91 - RESPIRATORY FAILURE, UNSPECIFIED WITH HYPOXIA Status: Acute (3) Bronchial asthma Code(s): J45.909 - UNSPECIFIED ASTHMA, UNCOMPLICATED Status: Acute - Plan Pneumonia due to Covid / resp failure - continue on zinc vitamin C - Decadron - s/p Convalescent plasma - out of remdesivir window - on 02 supplementation, wean as tolerated, - some minor clinical improvement noted today History of asthma continue home meds DVT prophylaxisLovenox
[2020-02-05] MEDS: Albuterol 200 PUFF (6.7GM INHALER) INH SCH ×6 (01:48→22:42)
[2020-02-05] MEDS: Levothyroxine Sodium 112 MCG TAB PO SCH (05:15)
[2020-02-05] MEDS: Mometasone 100 MCG/Formoterol 5 MCG 120 PUFF INHALER INH SCH ×2 (05:16→18:19)
[2020-02-05] MEDS: Enoxaparin Sodium 40 MG/0.4 ML SYRINGE SC SCH ×2 (07:59→20:29)
[2020-02-05] MEDS: Fluticasone Propionate Nasal Spray 16 gm Bottle NASAL SCH ×2 (08:00→20:29)
[2020-02-05] MEDS: Benzonatate 100 MG CAP PO SCH ×2 (08:00→20:29)
[2020-02-05] MEDS: Ascorbic Acid 500 mg Chewable Tablet PO SCH (08:00)
[2020-02-05] MEDS: Dexamethasone 4 mg/ml Vial SLOW IVP SCH (08:00)
[2020-02-05] MEDS: Cholecalciferol (Vitamin D3) 400 UNITS TAB PO SCH (08:00)
--- NOTE | 2020-02-05 12:41 | PDOC.HOSPP ---
- Subjective Encounter Date: 02/05/20 Encounter Time: 12:39 Subjective: seen in follow up for covid pneumonia and hypoxia, all problems and patient are new to me. patient in chair, doing well on 2L O2, she is satting 95+% when at rest but desaturates to low 80s with minimal exertion i/e ADL. discussed home o2 and recovering at home vs continuing to monitor here, patient does not yet feel ready to go home and is concerned about the hypoxia she gets. - Objective Vital Signs & Weight: Vital Signs (12 hours) Temp Pulse Resp BP Pulse Ox 02/05/20 07:45 98.4 F 66 18 93/58 L 95 Weight Admit Weight 197 lb 9.6 oz Weight 197 lb 9.6 oz I&O: 02/04/20 02/05/20 02/06/20 06:59 06:59 06:59 Intake Total 650 Balance 650 Result Diagrams: 02/03/20 05:40 02/03/20 05:40 Additional Labs: reviewed Radiology Reviewed by me: Yes Hospitalist ROS - Medication Medications: Active Medications Generic Name Dose Route Start Last Admin Trade Name Freq PRN Reason Stop Dose Admin Acetaminophen 650 mg 01/31/20 01:14 02/02/20 08:28 Acetaminophen 325 Mg Tab PO 650 mg Q4H PRN Administration Headache/Fever/Mild Pain (1-3) Albuterol Sulfate 2 puff 01/31/20 06:30 02/05/20 09:40 Albuterol 200 Puff (6.7gm Inhaler) INH 2 puff [id number] AWA Administration Ascorbic Acid 1,000 mg 01/31/20 09:00 02/05/20 08:00 Ascorbic Acid 500 Mg Chewable Tablet PO 1,000 mg DAILY AWA Administration Benzonatate 100 mg 01/31/20 06:02 01/31/20 06:27 Benzonatate 100 Mg Cap PO 100 mg Q6H PRN Administration Cough Benzonatate 200 mg 01/31/20 09:00 02/05/20 08:00 Benzonatate 100 Mg Cap PO 200 mg BID AWA Administration Cholecalciferol 400 units 01/31/20 09:00 02/05/20 08:00 Cholecalciferol (Vitamin D3) 400 Units Tab PO 400 units DAILY AWA Administration Dexamethasone 8 mg 01/31/20 09:00 12/27/20 08:00 Dexamethasone 4 Mg/Ml Vial SLOW IVP 8 mg DAILY AWA Administration Enoxaparin Sodium 40 mg 01/31/20 09:00 02/05/20 07:59 Enoxaparin Sodium 40 Mg/0.4 Ml Syringe SC 40 mg Q12HR AWA Administration Fluticasone Propionate 0 gm 01/31/20 09:00 02/05/20 08:00 Fluticasone Propionate Nasal [place] 16 Gm Bottle NASAL 1 spr BID AWA Administration Levothyroxine Sodium 112 mcg 02/01/20 06:00 02/05/20 05:15 Levothyroxine Sodium 112 Mcg Tab PO 112 mcg 0600 AWA Administration Mometasone Furoate/Formoterol Fumar 0 puff 01/31/20 18:30 02/05/20 05:16 Mometasone 100 Mcg/Formoterol 5 Mcg 120 Puff Inhaler INH 1 puff BID-RT AWA Administration Sodium Chloride 10 ml 01/31/20 09:00 02/05/20 08:00 Flush - Normal Saline 10 Ml Syringe IVF 10 ml Q12HR AWA Administration - Exam General Appearance: NAD, awake alert Eye: PERRL, anicteric sclera ENT: normocephalic atraumatic, no oropharyngeal lesions, moist mucosa Neck: supple, symmetric, no JVD, no thyromegaly, no lymphadenopathy, no carotid bruit Heart: RRR, no murmur, no gallops, no rubs, normal peripheral pulses Respiratory: CTAB, no wheezes, no rales, no ronchi, normal chest expansion, no tachypnea, normal percussion Gastrointestinal: soft, non-tender, non-distended, normal bowel sounds, no palpable masses, no hepatomegaly, no splenomegaly, no bruit Extremities: no cyanosis, no clubbing, no edema Skin: normal turgor, no lesions, no rashes Neurological: cranial nerve grossly intact, normal sensation to touch, no weakness, no focal deficits, no new deficit Musculoskeletal: normal tone, normal strength, no muscle wasting Psychiatric: normal affect, normal behavior, A&O x 3 Hosp A/P (1) Bronchial asthma Code(s): J45.909 - UNSPECIFIED ASTHMA, UNCOMPLICATED Status: Acute (2) Pneumonia due to COVID-19 virus Code(s): U07.1 - COVID-19; J12.89 - OTHER VIRAL PNEUMONIA Status: Acute (3) Respiratory failure with hypoxia Code(s): J96.91 - RESPIRATORY FAILURE, UNSPECIFIED WITH HYPOXIA Status: Acute - Plan Pneumonia due to Covid / resp failure - continue on zinc vitamin C - Decadron - s/p Convalescent plasma - out of remdesivir window - on supplementation, wean as tolerated, - 02/04: satting 95+% when at rest but desaturates to low 80s with minimal exertion i/e ADL. discussed home o2 and recovering at home vs continuing to monitor here, patient does not yet feel ready to go home and is concerned about the hypoxia she gets. History of asthma continue home meds DVT prophylaxisLovenox dc home w/ o2 vs home on RA in appx 24-48 hours i would estimate
[2020-02-06] MEDS: Albuterol 200 PUFF (6.7GM INHALER) INH SCH ×4 (01:38→14:13)
[2020-02-06] MEDS: Mometasone 100 MCG/Formoterol 5 MCG 120 PUFF INHALER INH SCH (05:35)
[2020-02-06] MEDS: Levothyroxine Sodium 112 MCG TAB PO SCH (05:35)
[2020-02-06 07:02] LABS: Anion Gap 13 mmol/L (10-20); BUN (Urea Nitrogen) 16 mg/dL (9.8-20.1); Calc. Creatinine Clearance 126 mL/min (70-130); Calcium 8.6 mg/dL (7.8-10.44); Carbon Dioxide 26 mmol/L (22-29); Chloride 103 mmol/L (98-107); Glucose 87 mg/dL (70-105); Potassium 4.2 mmol/L (3.5-5.1); Sodium 138 mmol/L (136-145)
[2020-02-06 07:15] LABS: Hemoglobin 13.2 g/dL (12.0-16.0); Mean Corpuscular HGB CONC 33.6 g/dL (32.0-36.0); Mean Corpuscular Hemoglobin 33.4 pg (27.0-31.0); Mean Corpuscular Volume 99.4 fL (78.0-98.0); Mean Platelet Volume 6.9 fL (7.4-10.4); Platelet Count 447 thou/uL (130-400); RBC Distribution Width 11.6 % (11.5-14.5); Red Blood Cell (RBC) Count 3.94 mill/uL (4.20-5.40); White Blood Cell (WBC) Count 16.2 thou/uL (4.8-10.8)
[2020-02-06] MEDS: Cholecalciferol (Vitamin D3) 400 UNITS TAB PO SCH (08:16)
[2020-02-06] MEDS: Enoxaparin Sodium 40 MG/0.4 ML SYRINGE SC SCH (08:16)
[2020-02-06] MEDS: Dexamethasone 4 mg/ml Vial SLOW IVP SCH (08:17)
[2020-02-06] MEDS: Ascorbic Acid 500 mg Chewable Tablet PO SCH (08:17)
[2020-02-06] MEDS: Benzonatate 100 MG CAP PO SCH (08:17)
[2020-02-06] MEDS: Fluticasone Propionate Nasal Spray 16 gm Bottle NASAL SCH (08:18)
[2020-02-06 08:25] LABS: Band 3 % (5-11); Lymphocytes 6 % (21-51); MDiff Complete? YES; Metamyelocyte 4 % (0-0); Monocytes 4 % (0-10); Myelocyte 1 % (0-0); Neutrophil 77 % (42-75); Platelet Morphology Comment Appears Increased; RBC Morphology Normal; Reactive Lymphocytes 5 % (0-10)
--- NOTE | 2020-02-06 13:16 | PDOC.DS.DS ---
Provider - Provider Date of Admission: 01/30/20 23:53 Admitting Provider: Modesto Feliciano MD Primary Care Physician: Unknown Course - Hospital Course Resuscitation Status: 01/31/20 01:14 Resuscitation Status Routine Resuscitation Status: FULL: Full Resuscitation - Labs Lab Results: 02/06/20 06:30 02/06/20 06:30 Abnormal Lab Results - Last 48 hrs 02/06/20 06:30: WBC 16.2 H, RBC 3.94 L, MCV 99.4 H, MCH 33.4 H, Plt Count 447 H, MPV 6.9 L, Neutrophils % (Manual) 77 H, Band Neuts % (Manual) 3 L, Lymphocytes % (Manual) 6 L, Myelocytes % 1 H, Plt Morphology Comment Appears Increased H Microbiology - Entire Visit 01/30/20 23:41 Venous blood - Left Arm Blood Culture - Final NO GROWTH IN 5 DAYS 01/30/20 23:41 Venous blood - Right Arm Blood Culture - Final NO GROWTH IN 5 DAYS - Physical Exam Vitals: Vital Signs (12 hours) Temp Pulse Resp BP Pulse Ox Pulse Ox Pulse Ox 02/06/20 09:31 96 96 02/06/20 08:00 98.2 F 77 18 92/57 L 95 02/06/20 05:35 72 18 97 02/06/20 05:30 98.6 F 73 20 106/69 97 Pulse Ox Pulse Ox 02/06/20 09:31 86 L 96 02/06/20 08:00 02/06/20 05:35 02/06/20 05:30 Weight Admit Weight 197 lb 9.6 oz Weight 197 lb 9.6 oz Physical Exam: The patient was seen and examined on the day of discharge. Problem - Problem (1) Bronchial asthma Code(s): J45.909 - UNSPECIFIED ASTHMA, UNCOMPLICATED Status: Acute (2) Pneumonia due to COVID-19 virus Code(s): U07.1 - COVID-19; J12.89 - OTHER VIRAL PNEUMONIA Status: Acute (3) Respiratory failure with hypoxia Code(s): J96.91 - RESPIRATORY FAILURE, UNSPECIFIED WITH HYPOXIA Status: Acute Plan - Discharge Medications Prescriptions: Albuterol Sulfate [Proventil Hfa] 2 puff INH Q4HR PRN #1 aer PRN Reason: Sob &/Or Wheezing Aspirin 325 mg PO DAILY #30 tab Ascorbic Acid [Vitamin C] 1,000 mg PO DAILY #30 tab Cholecalciferol (Vitamin D3) [Vitamin D3] 400 units PO DAILY #30 tab Home Medications: Medication Instructions Recorded Confirmed Type Benzonatate 200 mg PO BID 01/31/20 01/31/20 History Dexamethasone 6 mg PO QAM 01/31/20 01/31/20 History Estradiol [Vagifem] 10 mcg VG QAM 01/31/20 01/31/20 History Fluticasone Propionate [Flonase 1 spray EA NARE BID 01/31/20 01/31/20 History Nasal [place]] Fluticasone/Vilanterol [Breo 1 inh IH DAILY 01/31/20 01/31/20 History Ellipta] Levothyroxine Sodium 112 mcg PO QAM 01/31/20 01/31/20 History [Levothyroxine] Acetaminophen [Tylenol Regular 650 mg PO Q4H PRN tab 02/06/20 Rx Strength] Albuterol Sulfate [Proventil Hfa] 2 puff INH Q4HR PRN #1 aer 02/06/20 Rx Ascorbic Acid [Vitamin C] 1,000 mg PO DAILY #30 tab 02/06/20 Rx Aspirin 325 mg PO DAILY #30 tab 02/06/20 Rx Cholecalciferol (Vitamin D3) 400 units PO DAILY #30 tab 02/06/20 Rx [Vitamin D3] Allergies: Penicillins Allergy (Verified 01/31/20 01:51) Sulfa (Sulfonamide Antibiotics) Allergy (Verified 01/31/20 01:51) - Discharge Instructions Discharge Instructions:: d/c once home o2 arranged see pcp in 2-3 weeks to wean o2 Activity:: Other (as below) Nourishment:: Regular Diet - Follow up Plan Referrals: Unknown,Unknown [Primary Care Provider] - 2-3 Weeks (pcp in 2-3 weeks to address any residual issues) Disposition: HOME
[2020-02-06 17:23] VITALS: BP 112/73; TEMP 98
== END 2020-02-06 17:00 | disposition home or self-care (01) | DRG 871 ==
LOC: ERS 21:11 → T4-B 23:53 → UNDOADMIN 23:54 → T4-B 23:54
PROVIDERS: ADMIT Student in an Organized Health Care Education/Training Program; ATTEND Internal Medicine
PROC: 8E0ZXY6 Isolation (ICD-10-PCS; principal; 2020-01-30)
PROC: XW13325 Transfusion of Convalescent Plasma (Nonautologous) into Peripheral Vein, Percutaneous Approach, New Technology Group 5 (ICD-10-PCS; 2020-01-31)
DX: A41.89 Other specified sepsis (principal); U07.1 COVID-19; J12.89 Other viral pneumonia; J96.01 Acute respiratory failure with hypoxia; J45.909 Unspecified asthma, uncomplicated; Z88.0 Allergy status to penicillin; Z88.2 Allergy status to sulfonamides; Z90.49 Acquired absence of other specified parts of digestive tract; Z79.01 Long term (current) use of anticoagulants; Z79.890 Hormone replacement therapy; Z79.899 Other long term (current) drug therapy
CPT/HCPCS: 36415; 36430; 71045; 71275; 80048; 80053; 83605; 84484; 85025; 85379; 86850; 86900; 86901; 87040; 93005; 96365; 96372; 96375; J0456; J1100; J1650; J2930; P9017; Q9967

== ENCOUNTER 2020-03-19 15:28 | Outpatient (CLI) | payer OTHER ==
--- NOTE | 2020-03-19 16:16 | RAD ---
XR Ankle Rt 3 View STANDARD History: Injury. Rolled ankle Comparison: None. Findings: Moderate joint effusion. Mild tonsillar ossification along the talonavicular joint. No acut e displaced fracture or malalignment. Impression: Ankle sprain without acute osseous abnormality.
== END 2020-03-19 15:29 | disposition home or self-care (01) ==
LOC: SCSRAD 15:28
PROVIDERS: ATTEND Family Medicine
DX: S93.421A Sprain of deltoid ligament of right ankle, initial encounter (principal)